=== PATIENT | male | born 1950 | race Caucasian/White ===

== ENCOUNTER 2021-10-08 09:05 | Emergency (ER) | payer MEDICARE ==
[~2021-10-08] VITALS: Ht 175.3 cm; Wt 88.0 kg
[2021-10-08 09:50] LABS: BASOPHILS % (AUTO) 0.3 % (0.0-5.0); EOSINOPHILS % (AUTO) 0.6 % (0.0-8.0); HEMATOCRIT 31.9 % (42-54); LYMPHOCYTES % (AUTO) 14.7 % (21.0-51.0); MEAN CORPUSCULAR HEMOGLOBIN 31.5 pg (27.0-33.0); MEAN CORPUSCULAR HGB CONC 34.2 g/dL (32.0-36.0); MEAN CORPUSCULAR VOLUME 92.2 fL (79-99); MONOCYTES % (AUTO) 2.1 % (3.0-13.0); NEUTROPHILS % (AUTO) 81.7 % (40.0-77.0); PLATELET COUNT (AUTO) 210 K/uL (130-400); RED BLOOD CELL COUNT(AUTO) 3.46 MIL/uL (4.50-6.20); WHITE BLOOD COUNT (AUTO) 3.4 K/uL (4.8-10.8)
[2021-10-08 10:01] LABS: CREATININE 0.9 mg/dL (0.5-1.5); POTASSIUM 4.5 mmol/L (3.5-5.1)
[2021-10-08 10:08] LABS: ALBUMIN 2.9 g/dL (3.5-5.0); BILIRUBIN,TOTAL 0.8 mg/dL (0.2-1.0); TOTAL PROTEIN, SERUM 7.1 g/dL (6.0-8.3)
[2021-10-08] MEDS ORDERED: D-ME118S47 PO (10:36)
[2021-10-08 10:50] LABS: B-TYPE NATRIURETIC PEPTIDE 45 pg/mL (0-100)
[2021-10-08 10:51] VITALS: BP 136/87
[2021-10-08] MEDS ORDERED: GUAIFENESIN-DM 200/20 MG 10 ML PO SCH (11:00)
[2021-10-08] MEDS ORDERED: ACETAMINOPHEN 500 MG TABLET PO SCH (11:00)
== END 2021-10-08 10:45 | disposition home or self-care (01) ==
LOC: EDH 09:05
DX: U07.1 COVID-19 (principal); E78.00 Pure hypercholesterolemia, unspecified; Z95.0 Presence of cardiac pacemaker
CPT/HCPCS: 36415; 71045; 80053; 83605; 83880; 84145; 84484; 85025; 87635; 99284; C9803

== ENCOUNTER 2021-11-01 15:51 | Emergency (ER) | payer MEDICARE ==
[~2021-11-01] VITALS: Ht 175.3 cm; Wt 86.2 kg
[~2021-11-01 15:51] MED LIST: ACET-66 PO; ASPI-1197 PO; ATOR-2 PO; CETI10TA87 PO; CLON0.5T4 PO; CLOP75TA14 PO; CYAN250T3 PO; DEXA6TAB PO; DOCU-116 PO; GABA-529 PO; MELA1TAB28 PO; METO25TA6 PO; MODA200T48 PO; TAMS-1 PO
[2021-11-01] MEDS ORDERED: 0.9%NACL 1000ML 1,000 ML IV SCH (16:30)
[2021-11-01] MEDS ORDERED: ACETAMINOPHEN WITH CODEINE 1 TAB TAB PO ONE (16:30)
[2021-11-01] MEDS ORDERED: DEXAMETHASONE SOD PHOSPHATE 4 MG/ML 1ML VIAL IVP ONE (16:30)
[2021-11-01] MEDS ORDERED: ALBUTEROL INHALER 90MCG/INH IH PRN (16:30)
[2021-11-01 16:37] LABS: ABG BASE EXCESS 0.2 mmol/L (-2.0-3.0); ABG OXYGEN SATURATION 97.3 % (95.0-99.0); ABG PCO2 32 mmHg (35-48)
[2021-11-01 17:00] LABS: BASOPHILS % (AUTO) 0.5 % (0.0-5.0); EOSINOPHILS % (AUTO) 2.5 % (0.0-8.0); LYMPHOCYTES % (AUTO) 23.2 % (21.0-51.0); MEAN CORPUSCULAR HEMOGLOBIN 32.2 pg (27.0-33.0); MEAN CORPUSCULAR HGB CONC 33.9 g/dL (32.0-36.0); MEAN CORPUSCULAR VOLUME 94.9 fL (79-99); MONOCYTES % (AUTO) 4.5 % (3.0-13.0); NEUTROPHILS % (AUTO) 64.8 % (40.0-77.0); PLATELET COUNT (AUTO) 94 K/uL (130-400); RED BLOOD CELL COUNT(AUTO) 2.95 MIL/uL (4.50-6.20); RED CELL DISTRIBUTION WIDTH 14.2 % (11.0-15.5)
[2021-11-01] MEDS ORDERED: CEFTRIAXONE 1G VIAL IVP ONE (17:00)
[2021-11-01] MEDS ORDERED: AZITHROMYCIN 250 MG TABLET PO ONE (17:00)
[2021-11-01 17:17] LABS: CREATININE 0.8 mg/dL (0.5-1.5); POTASSIUM 3.9 mmol/L (3.5-5.1)
[2021-11-01 17:22] LABS: ALBUMIN 2.7 g/dL (3.5-5.0); BILIRUBIN,TOTAL 0.9 mg/dL (0.2-1.0); TOTAL PROTEIN, SERUM 6.5 g/dL (6.0-8.3)
[2021-11-01 17:32] LABS: B-TYPE NATRIURETIC PEPTIDE 51 pg/mL (0-100)
[2021-11-01 17:44] LABS: BAND NEUTROPHILS % (MANUAL) 7 % (0-2); EOSINOPHILS % (MANUAL) 2 % (1-6); LYMPHOCYTES % (MANUAL) 21 % (22-44); MAN.DIFF COMMENT-IMPRESSION MANUAL DIFFERENTIAL; MONOCYTES % (MANUAL) 2 % (2-9); SEGMENTED NEUTROPHILS % 68 % (40-70)
[2021-11-01 17:45] LABS: PLATELET MORPHOLOGY COMMENT DECREASED
[2021-11-01 17:59] LABS: APPEARANCE,URINE Clear (CLEAR); BILIRUBIN,URINE Negative (NEGATIVE); COLOR,URINE Yellow (YELLOW); GLUCOSE, URINE (UA) Negative (NEGATIVE); KETONES,URINE Negative (NEGATIVE); LEUKOCYTE ESTERASE ,URINE Negative (NEGATIVE); NITRATE,URINE Negative (NEGATIVE); OCCULT BLOOD,URINE Negative (NEGATIVE); PH,URINE 6.5 (5.0-8.0); PROTEIN,URINE Negative (NEGATIVE); UROBILINOGEN,URINE 0.2 mg/dL (0.2-1.0)
[2021-11-01] MEDS ORDERED: 0.9%NACL 1000ML 1,000 ML IV ONE (18:01)
[2021-11-01 18:05] VITALS: BP 99/56
[2021-11-01] MEDS ORDERED: ALBU8.5H8 IH (18:41)
[2021-11-01] MEDS ORDERED: AMOX1TAB16 PO (18:41)
[2021-11-01] MEDS ORDERED: AZIT500T PO (18:41)
[2021-11-01] MEDS ORDERED: D-ME1POW16 PO (18:41)
[2021-11-16] MEDS ORDERED: PRED20TA3 PO (00:48)
[2021-11-16] MEDS ORDERED: BUDE10.2 IH (00:48)
[2021-11-16] MEDS ORDERED: PRED10TA3 PO (00:48)
[2021-11-16] MEDS ORDERED: AMOX-426 PO (00:50)
[2021-11-16] MEDS ORDERED: IPRA3AMP24 IH (00:51)
== END 2021-11-01 19:17 | disposition home or self-care (01) ==
LOC: EDH 15:51
DX: J18.9 Pneumonia, unspecified organism (principal); D72.819 Decreased white blood cell count, unspecified; Z20.822 Contact with and (suspected) exposure to COVID-19; Z79.52 Long term (current) use of systemic steroids; Z79.82 Long term (current) use of aspirin; Z95.5 Presence of coronary angioplasty implant and graft; E87.1 Hypo-osmolality and hyponatremia
CPT/HCPCS: 36415; 36600; 71045; 80053; 81003; 82550; 82803; 83605; 83880; 84145; 84484; 85025; 87040 ×2; 87088; 87635; 87804 ×2; 93005; 96361; 96374; 96375; 99285; C9803; J0696; J1100; J7030